=== PATIENT | female | born 1980 | race American Indian/Alaskan Native ===

== ENCOUNTER 2019-04-12 01:52 | Emergency (ER) | payer OTHER ==
[2019-04-12 01:59] VITALS: BP 114/52
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
== END 2019-04-12 03:15 | disposition home or self-care (01) ==
LOC: ED 01:52
DX: M79.641 Pain in right hand (principal); M25.562 Pain in left knee; R51 Headache; F17.200 Nicotine dependence, unspecified, uncomplicated; V43.52XA Car driver injured in collision with other type car in traffic accident, initial encounter; Y93.89 Activity, other specified; Y92.89 Other specified places as the place of occurrence of the external cause; Y99.8 Other external cause status

== ENCOUNTER 2020-07-24 22:15 | Emergency (ER) | payer SELFPAY ==
[2020-07-25 01:45] LABS: Basophils % (Auto) 0.9 % (0.0-1.8); Eosinophils # (Auto) 0.1 K/mm3 (0.0-0.4); Eosinophils % (Auto) 2.8 % (0.0-4.3); Hematocrit 28.2 % (30.3-42.9); Hemoglobin 8.7 gm/dl (10.1-14.3); Lymphocytes # (Auto) 1.4 K/mm3 (1.2-5.4); Lymphocytes % (Auto) 36.8 % (13.4-35.0); Mean Corpuscular HGB Conc 31 % (30-34); Monocytes # (Auto) 0.4 K/mm3 (0.0-0.8); Monocytes % (Auto) 9.3 % (0.0-7.3); Platelet Count 259 K/mm3 (140-440); Red Blood Count 4.15 M/mm3 (3.65-5.03); Red Cell Distribution Width 18.6 % (13.2-15.2)
[2020-07-25 01:56] LABS: Mean Corpuscular Volume 68 fl (79-97)
[2020-07-25 03:11] LABS: Bacteria,Urine 1+ /HPF (Negative); Bilirubin,Urine NEG (Negative); Blood,Urine NEG (Negative); Color,Urine Yellow (Yellow); Mucus,Urine FEW /HPF; Protein,Urine <15 mg/dL mg/dL (Negative); RBC,Urine < 1.0 /HPF (0.0-6.0)
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
[2020-07-25] MEDS ORDERED: LIDOCAINE-MPF (1%) 10 MG/1 ML VIAL 5 ML INFILTRATI ONE (05:20)
[2020-07-25 06:14] VITALS: BP 116/76
== END 2020-07-25 05:35 | disposition home or self-care (01) ==
LOC: ED 22:15
DX: N72 Inflammatory disease of cervix uteri (principal); Z20.2 Contact with and (suspected) exposure to infections with a predominantly sexual mode of transmission
CPT/HCPCS: 36415; 81001; 84702; 85025; 86900; 86901; 87210; 87591; 96372; 99284; J0696